=== PATIENT | female | born 1975 | race American Indian/Alaskan Native ===

== ENCOUNTER 2017-09-20 17:44 | Emergency (ER) | payer OTHER ==
[2017-09-20 18:12] VITALS: BP 149/92
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
[2017-09-20] MEDS ORDERED: MOTRIN PO ONE (21:15)
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
== END 2017-09-20 22:32 | disposition home or self-care (01) ==
LOC: ED 17:44
DX: S13.4XXA Sprain of ligaments of cervical spine, initial encounter (principal); S39.012A Strain of muscle, fascia and tendon of lower back, initial encounter; Z88.5 Allergy status to narcotic agent; V89.2XXA Person injured in unspecified motor-vehicle accident, traffic, initial encounter; Y93.89 Activity, other specified; Y99.8 Other external cause status; Y92.410 Unspecified street and highway as the place of occurrence of the external cause
CPT/HCPCS: 72040; 72070; 72100; 99283